=== PATIENT | female | born 1955 | race Caucasian/White ===

== ENCOUNTER 2023-09-09 00:42 | Emergency (ER) | payer MEDICARE, SELFPAY ==
[2023-09-09 00:55] VITALS: BP 169/99; PULSE 85; RESP 18; TEMP 37.1; O2SAT 96; BMI 42.9
[2023-09-09 02:03] VITALS: PULSE 65; RESP 16
--- NOTE | 2023-09-09 02:03 | ED.ARRPALP ---
HPI - Arrhythmia/Palpitations General Date Seen: 09/09/23 Chief Complaint: Arrhythmia/Palpitations Stated Complaint: heart is racing Time Seen by Provider: 09/09/23 00:56 Source: patient and family Mode of arrival: ambulatory Limitations: no limitations History of Present Illness HPI narrative: This very nice lady presents with her son with a history of palpitations and feeling that her heart is racing, or earlier tonight this started about 930 and lasted for probably an hour and a half. This was not associated with chest pain, or shortness of breath, she has had this a number of times and actually just finished a Zio patch, which showed she was in SVT but also atrial fibrillation. She has not yet touch base with her primary care physician . She does have an appointment with Cardiology coming up, her identical twin sister did have a problem with SVT in the last few years also she has no previous history of heart issues at all. She does have a history of hypertension, hyperlipidemia, and does take aspirin just because it is probably good for her. Denies any leg swelling, chest pain shortness of breath or any symptoms at all and says the SVT stopped on her way to the hospital. Denies using alcohol, drugs, or [id number] cold medications, she only drinks 1 cup of coffee a day, but does have T in the afternoon. MD complaint: rapid heart beat and heart racing Context: occurred during rest Arrhythmia history: atrial fibrillation and SVT Associated symptoms: denies other symptoms Related Data Home Medications Medication Instructions Recorded Confirmed atorvastatin 40 mg tablet 40 mg PO DAILY 11/12/22 09/09/23 hydrochlorothiazide 25 mg tablet 25 mg PO DAILY 11/12/22 09/09/23 lisinopril 10 mg tablet 10 mg PO DAILY 11/12/22 09/09/23 lorazepam 0.5 mg tablet 0.5 mg PO BID PRN anxiety 11/12/22 11/12/22 potassium chloride 20 mEq 20 meq PO DAILY 11/12/22 09/09/23 tablet,extended release venlafaxine 37.5 mg 37.5 mg PO DAILY 11/12/22 09/09/23 capsule,extended release 24 hr Allergies Allergy/AdvReac Type Severity Reaction Status Date / Time No Known Drug Allergies Allergy Verified 11/12/22 13:12 Review of Systems Status of ROS: Reports: 10 or more systems reviewed and unremarkable except as noted in History and below [facility] Medical History Morbid obesity with body mass index (BMI) of 45.0 to 49.9 in adult ?E66.01 - Morbid (severe) obesity due to excess calories (ICD-10) ?Z68.42 - Body mass index [BMI] 45.0-49.9, adult (ICD-10) Hiatal hernia ?K44.9 - Diaphragmatic hernia without obstruction or gangrene (ICD-10) Costochondritis ?M94.0 - Chondrocostal junction syndrome [Tietze] (ICD-10) Concussion ?S06.0XAA - Concussion with loss of consciousness status unknown, initial encounter (ICD-10) Closed head injury ?S09.90XA - Unspecified injury of head, initial encounter (ICD-10) Chest pain ?R07.9 - Chest pain, unspecified (ICD-10) Abdominal pain ?R10.9 - Unspecified abdominal pain (ICD-10) Lichen sclerosus ?L90.0 - Lichen sclerosus et atrophicus (ICD-10) Anxiety ?F41.9 - Anxiety disorder, unspecified (ICD-10) Sleep apnea ?G47.30 - Sleep apnea, unspecified (ICD-10) GERD (gastroesophageal reflux disease) ?K21.9 - Gastro-esophageal reflux disease without esophagitis (ICD-10) Surgical History History of surgery on arm ?Z98.890 - Other specified postprocedural states (ICD-10) History of elbow surgery ?Z98.890 - Other specified postprocedural states (ICD-10) Family History Son Diabetes Father Lung cancer Mother CHF (congestive heart failure) Social History Smoking Status: Never smoker Exam Narrative: Exam Narrative: On examination and stabilization room 2 she is in absolutely no distress, speaking to me normally she is here with her son her pupils equal round reactive to light oropharynx is normal, neck is supple, hydration status is excellent, her thyroid is midline palpable not enlarged. Chest is good air entry bilaterally with no wheezing crackles noted heart sounds no clicks murmurs or gallops her abdomen is obese, there is no tenderness to palpation, no organomegaly. she has no swelling of her lower extremities negative Homans sign moves all extremities independently well., Const: Vital Signs, click to edit/add: Vital Signs - 24 hr 09/09/23 00:55 09/09/23 02:03 Temperature 98.7 F Pulse Rate [Pulse Oximeter] 85 65 Respiratory Rate 18 16 Blood Pressure [Le ft Upper Arm] 169/99 H Pulse Oximetry 96 Oxygen Delivery Me thod Room Air Documenting provider has reviewed patient's vital signs: yes Course Course ED Course: I discussed with the patient and her son, we could do some blood test but they were able to show me through my chart, that the TSH basic metabolic profile and CBC were all normal I was able to read the report from the Zio patch showing that she is in is in out of atrial fibrillation with occasional SVT. It is noted on the my chart note that the doctor will contact her and put her on Xarelto . I think now she is back to baseline it is reasonable that we can just watch this, and let her go home they have done the full workup including normal thyroid testing. And she was comfortable with this she should return if she has this longer than 2 hours, or feels chest pain shortness of breath or other symptoms. She has appoint with cardiology Vital Signs Vital signs: Initial Vital Signs Temperature 98.7 F 09/09/23 00:55 Temperature Source Temporal Artery Scan 09/09/23 00:55 Pulse Rate 85 09/09/23 00:55 Respiratory Rate 18 09/09/23 00:55 Blood Pressure 169/99 H 09/09/23 00:55 Blood Pressure Mean 122 H 09/09/23 00:55 Blood Pressure Position Sitting 09/09/23 00:55 Pulse Oximetry 96 09/09/23 00:55 Oxygen Delivery Method Room Air 09/09/23 00:55 Vital Signs Temperature 98.7 F 09/09/23 00:55 Pulse Rate 85 09/09/23 00:55 Respiratory Rate 18 09/09/23 00:55 Blood Pressure 169/99 H 09/09/23 00:55 Pulse Oximetry 96 09/09/23 00:55 Oxygen Delivery Method Room Air 09/09/23 00:55 Temperature 98.7 F 09/09/23 00:55 Pulse Rate 65 09/09/23 02:03 Respiratory Rate 16 09/09/23 02:03 Blood Pressure 169/99 H 09/09/23 00:55 Pulse Oximetry 96 09/09/23 00:55 Oxygen Delivery Method Room Air 09/09/23 00:55 MDM - Arrhythmia/Palpitations MDM Narrative Medical decision making narrative: Differential diagnosis includes but is not limited to psychosocial stress, thyroid abnormalities, CHF, SVT, atrial fibrillation, ventricular tachycardia and ventricular fibrillation. This includes the life-threatening complications of heart failure, V-tach, and VFib Medical Records Attestation: I reviewed the patient's medical records. ECG Data Attestation: I personally reviewed and interpreted this ECG as follows: ECG interpretation date: 09/09/23 Interpretation: EKG shows normal sinus rhythm, with occasional PVCs, ventricular rate was 64, intervals were normal. There is no acute ST wave changes Discharge Plan Discharge Clinical Impression: Arrhythmia Patient Disposition: Home w/ Parent or Adult Condition: Stable Additional Instructions: Home, rest, use of medications as directed, would recommend you call your doctor tomorrow, to see if you should start the Xarelto. Return here if arrhythmia goes on for longer than 2 hours. He developed chest pain or shortness of breath. Her feel lightheaded. Activity Level: Light activity Prescriptions: No Action potassium chloride 20 mEq tablet extended release 20 meq PO DAILY hydrochlorothiazide 25 mg tablet 25 mg PO DAILY lisinopril 10 mg tablet 10 mg PO DAILY venlafaxine 37.5 mg capsule,extended release 24hr 37.5 mg PO DAILY atorvastatin 40 mg tablet 40 mg PO DAILY lorazepam 0.5 mg tablet 0.5 mg PO BID PRN (Reason: anxiety) Follow Up/Referrals: Poppy Herbert DO [Primary Care Provider] - Stand Alone Forms: [facility] ([facility]) Info Instructions
== END 2023-09-09 02:05 | disposition home or self-care (01) ==
PROVIDERS: Emergency Provider Family Medicine; PCP Family Medicine
DX: I49.9 Cardiac arrhythmia, unspecified (principal)
CPT/HCPCS: 93005; 99284